=== PATIENT | female | born 1960 | race Caucasian/White ===

== ENCOUNTER → 2019-02-16 | Outpatient (CLI) | payer OTHER ==
[~2019-02-16] MED LIST: ARIMIDEX PO; ASPIRIN EC325 M1 PO; CALCIUM 600 +1 EAC1 PO; DIPHENHYDRAMINE25 M3 PO; KEFLEX500 MG PO; NOHOMEMEDICATIONS; PERCOCET 5-3251 EACH PO; VALIUM5 MG PO; VITAMIN D35000 UNI1 PO; ZPAK PO
== END ==
LOC: RAD 13:04
DX: Z12.31 Encounter for screening mammogram for malignant neoplasm of breast (principal)

== ENCOUNTER 2019-04-01 13:49 | Emergency (ER) | payer OTHER ==
[~2019-04-01] VITALS: Ht 175.3 cm; Wt 73.5 kg
[2019-04-01] MEDS ORDERED: NORCO 5-325 TA1 EAC1 PO (15:10)
[2019-04-01] MEDS ORDERED: LIDOCAINE PAIN1 EACH TOP (15:10)
[2019-04-01 15:37] VITALS: BP 136/67
== END 2019-04-01 16:36 | disposition home or self-care (01) ==
LOC: ER 13:49
DX: S22.32XA Fracture of one rib, left side, initial encounter for closed fracture (principal); F17.210 Nicotine dependence, cigarettes, uncomplicated; Z85.3 Personal history of malignant neoplasm of breast; Z90.12 Acquired absence of left breast and nipple; W18.39XA Other fall on same level, initial encounter; Y93.89 Activity, other specified; Y92.89 Other specified places as the place of occurrence of the external cause; Y99.0 Civilian activity done for income or pay